=== PATIENT | male | born 1990 | race Caucasian/White ===

== ENCOUNTER → 2017-08-03 | Outpatient (CLI) | payer BC ==
[~2017-08-03] MED LIST: BARIUM SUSPENSION 2.1% (VANILLA SILQ) 450 ML PO ONE; IOHEXOL 350 MG/ML 100 ML (OMNIPAQUE 350) VIAL IV ONE
--- NOTE | 2017-08-03 11:13 | Diagnostic Imaging Report ---
INDICATION: Cough. PA and lateral views of chest were obtained. FINDINGS: The heart size, mediastinal configuration, and pulmonary vascularity are within normal limits. There is no pleural effusion, pneumothorax, or pneumonia. The osseous structures are unremarkable. IMPRESSION: No acute cardiopulmonary abnormality. Dictated by: Dictated on workstation # [id number]
--- NOTE | 2017-08-03 11:27 | Diagnostic Imaging Report ---
PROCEDURE: CT neck soft tissue with contrast. TECHNIQUE: Multiple contiguous axial images were obtained through the neck after the administration of contrast. INDICATION: Chronic cough with palpable abnormality under the right jaw line. FINDINGS: The lung bases are clear. The alignment of the cervical spine is normal. The prevertebral soft tissues are within normal limits. The nasopharyngeal, oropharyngeal and hypopharyngeal tissues are symmetrical without mass effect. The visualized intracranial structures are unremarkable. Visualized paranasal sinuses and mastoid air cells are clear. The visualized globes and intraorbital structures are unremarkable. The parotid and submandibular glands are normal in appearance. There is a 6 mm low-density lesion in the right lobe of the thyroid, likely a cyst. There is no pathologically enlarged adenopathy or mass in the neck. In the region of the palpable abnormality, there is a small lymph node just superficial to the submandibular gland. IMPRESSION: A 6 mm low-density lesion in the right lobe of the thyroid likely a cyst. This would be better evaluated with thyroid ultrasound if clinically warranted. Otherwise unremarkable CT neck. Specifically there is no evidence of pathologically enlarged adenopathy or mass. Dictated by: Dictated on workstation # [id number]
== END ==
LOC: RAD 10:15
PROVIDERS: ATTEND Nurse Practitioner Family
DX: E07.9 Disorder of thyroid, unspecified (principal); R05 Cough
CPT/HCPCS: 70491; 71046